=== PATIENT | male | born 1955 | race African-American/Black ===

== ENCOUNTER 2021-10-31 14:18 | Observation (INO) | payer BC ==
[2021-10-31] MEDS ORDERED: SODIUM CHLORIDE 0.9% 500 ML INFUS.BAG IV ONE (15:30)
[2021-10-31] MEDS ORDERED: ACETAMINOPHEN 1000 MG/100 ML VIAL IVPB ONE (15:30)
[2021-10-31] MEDS ORDERED: ACETAMINOPHEN INJECTION 100 ML IVPB ONE (15:38)
[2021-10-31 16:58] LABS: CHLORIDE 106 mmol/L (98-107); SODIUM 140 mmol/L (136-145)
[2021-10-31 17:00] LABS: ALBUMIN 3.3 g/dl (3.4-5.0); ANION GAP 8 MMOL/L (8-16); BLOOD UREA NITROGEN 15.4 mg/dL (7-18); CALCIUM 8.2 mg/dL (8.5-10.1); CO2 27 mmol/L (21-32); GLUCOSE,RANDOM 98 mg/dL (74-106)
[2021-10-31 17:03] LABS: CREATININE 1.3 mg/dL (0.55-1.3)
[2021-10-31 17:04] LABS: SGOT/AST 64 U/L (15-37); SGPT/ALT 64 U/L (13-61)
[2021-10-31 17:05] LABS: BILIRUBIN,TOTAL 0.4 mg/dL (0.2-1); TOT PROT 7.2 g/dl (6.4-8.2)
[2021-10-31 17:06] LABS: ALK PHOS 56 U/L (45-117)
[2021-10-31 17:20] LABS: BASO % 0.4 % (0-2.0); HEMATOCRIT 42.6 % (35.4-49); HEMOGLOBIN 13.7 GM/dL (11.7-16.9); LYMPH % 20.7 % (8-40); MCH 23.8 pg (25.7-33.7); MCHC 32.3 g/dl (32.0-35.9); MEAN CELL VOLUME 73.9 fl (80-96); MEAN PLT VOLUME 11.1 fl (7.5-11.1); MONO % 15.6 % (3.8-10.2); NEUT % 63.3 % (42.8-82.8); PLATELET COUNT 94 10^3/uL (134-434); RBC 5.76 M/mm3 (4.00-5.60); RDW 14.2 % (11.9-15.9); WHITE BLOOD COUNT 4.6 K/mm3 (4.0-10.0)
[2021-10-31] MEDS ORDERED: POTASSIUM CHLORIDE ORAL LIQUID 20 MEQ/15 ML PO ONE (19:34)
[2021-10-31 21:05] LABS: MAGNESIUM 2.1 mg/dL (1.8-2.4)
[2021-10-31] MEDS: ENOXAPARIN NA (PORCINE) 40 MG/0.4 ML DISP.SYRIN SQ SCH (22:06)
[2021-10-31 23:35] VITALS: BMI 27.7
[2021-11-01 07:33] LABS: BASO % 0.3 % (0-2.0); EOS % 0.1 % (0-4.5); HEMATOCRIT 39.6 % (35.4-49); HEMOGLOBIN 12.7 GM/dL (11.7-16.9); LYMPH % 38.3 % (8-40); MCH 23.3 pg (25.7-33.7); MCHC 32.1 g/dl (32.0-35.9); MEAN CELL VOLUME 72.7 fl (80-96); MEAN PLT VOLUME 10.5 fl (7.5-11.1); MONO % 17.3 % (3.8-10.2); PLATELET COUNT 83 10^3/uL (134-434); RBC 5.45 M/mm3 (4.00-5.60); RDW 14.7 % (11.9-15.9); WHITE BLOOD COUNT 2.5 K/mm3 (4.0-10.0)
[2021-11-01 07:44] LABS: INR 1.31 (0.83-1.09); PROTHROMBIN TIME (PATIENT) 14.7 SEC (9.7-13.0)
[2021-11-01 07:46] LABS: ACTIVATED PTT 31.8 SECONDS (25.2-36.5)
[2021-11-01 07:57] LABS: CALCIUM 7.9 mg/dL (8.5-10.1)
[2021-11-01 07:58] LABS: MAGNESIUM 2.1 mg/dL (1.8-2.4)
[2021-11-01 08:00] LABS: PHOSPHOROUS 2.6 mg/dL (2.5-4.9)
[2021-11-01 08:01] LABS: BLOOD UREA NITROGEN 13.2 mg/dL (7-18)
[2021-11-01 08:47] LABS: PH,URINE 5.5 (5.0-8.0); URINE APPEARANCE CLEAR; URINE BILIRUBIN NEGATIVE (NEGATIVE); URINE COLOR YELLOW; URINE GLUCOSE (UA) NEGATIVE (NEGATIVE); URINE KETONE NEGATIVE (NEGATIVE); URINE LEUK ESTERASE NEGATIVE (NEGATIVE); URINE NITRITE NEGATIVE (NEGATIVE); URINE PROTEIN TRACE (NEGATIVE)
[2021-11-01] MEDS: ENOXAPARIN NA (PORCINE) 40 MG/0.4 ML DISP.SYRIN SQ SCH (09:53)
[2021-11-01] MEDS ORDERED: ASCORBIC ACID 250 MG TABLET (FP) PO SCH (10:45)
[2021-11-01] MEDS ORDERED: CHOLECALCIFEROL (VIT D3) 1,000 UNIT (25 MCG) TABLET PO SCH (10:45)
[2021-11-01] MEDS ORDERED: ZINC SULFATE 220 MG CAPSULE (FP) PO SCH (10:45)
[2021-11-01] MEDS: ACETAMINOPHEN 325 MG TABLET (FP) PO PRN ×2 (11:15→17:36)
[2021-11-01] MEDS ORDERED: PT OWN MED DRAWER 7, Y5N ONE (13:59)
[2021-11-01 14:29] VITALS: BP 102/52; PULSE 56; TEMP 100
== END 2021-11-01 18:43 | disposition home or self-care (01) ==
LOC: JER 14:18 → JERBED 15:28 → INTOOBSV 15:28 → J4S 20:40
PROVIDERS: ADMIT Internal Medicine
PROC: 3E033NZ Introduction of Analgesics, Hypnotics, Sedatives into Peripheral Vein, Percutaneous Approach (ICD-10-PCS; principal; 2021-10-31)
PROC: 3E023GC Introduction of Other Therapeutic Substance into Muscle, Percutaneous Approach (ICD-10-PCS; 2021-10-31)
PROC: 3E0337Z Introduction of Electrolytic and Water Balance Substance into Peripheral Vein, Percutaneous Approach (ICD-10-PCS; 2021-10-31)
DX: U07.1 COVID-19 (principal); R55 Syncope and collapse; I10 Essential (primary) hypertension; R79.89 Other specified abnormal findings of blood chemistry; R05.9 Cough, unspecified
CPT/HCPCS: 36415; 70450-TC; 71045-TC-FY; 80048; 80053; 80061; 81003; 82533; 82550; 82553; 82728; 82962; 83036; 83615; 83735; 83930; 84100; 84439; 84443; 84484; 85025; 85379; 85610; 85730; 86140; 87040; 87086; 87804; 93005; 93010; 93880-TC; 94010; 99285-25; C9803; G0378; J0131; U0003; U0005

== ENCOUNTER 2022-08-21 20:27 | Emergency (ER) | payer BC ==
[2022-08-21 20:45] VITALS: BP 159/76; PULSE 52; RESP 19; TEMP 98.2; BMI 27.4
[2022-08-21 21:39] LABS: BASO % 0.6 % (0-2.0); EOS % 3.2 % (0-4.5); HEMATOCRIT 41.5 % (35.4-49); HEMOGLOBIN 13.2 GM/dL (11.7-16.9); LYMPH % 53.1 % (8-40); MCH 23.5 pg (25.7-33.7); MCHC 31.8 g/dl (32.0-35.9); MEAN CELL VOLUME 73.8 fl (80-96); MEAN PLT VOLUME 9.6 fl (7.5-11.1); MONO % 13.5 % (3.8-10.2); NEUT % 29.6 % (42.8-82.8); PLATELET COUNT 131 10^3/uL (134-434); RBC 5.62 M/mm3 (4.00-5.60); RDW 14.7 % (11.9-15.9); WHITE BLOOD COUNT 5.1 K/mm3 (4.0-10.0)
[2022-08-21 21:48] LABS: INR 1.11 (0.83-1.09); PROTHROMBIN TIME (PATIENT) 12.8 SEC (9.7-13.0)
[2022-08-21 21:50] LABS: ACTIVATED PTT 32.8 SECONDS (25.2-36.5)
[2022-08-21 22:06] LABS: ALBUMIN 3.6 g/dl (3.4-5.0); BLOOD UREA NITROGEN 13.8 mg/dL (7-18)
[2022-08-21 22:06] LABS: EPI CELLS 1 /uL (0-25.1); HYALINE CASTS 0 /uL (0-3.1); PH,URINE 8.5 (5.0-8.0); URINE APPEARANCE TURBID; URINE BACTERIA 5 /uL (0-1359); URINE BILIRUBIN NEGATIVE (NEGATIVE); URINE COLOR YELLOW; URINE GLUCOSE (UA) NEGATIVE (NEGATIVE); URINE KETONE TRACE (NEGATIVE); URINE LEUK ESTERASE NEGATIVE (NEGATIVE); URINE NITRITE NEGATIVE (NEGATIVE); URINE PROTEIN TRACE (NEGATIVE); URINE RBC 324 /uL (0-23.9); URINE WBC 2 /uL (0-25.8)
[2022-08-21 22:09] LABS: CREATININE 1.1 mg/dL (0.55-1.3)
[2022-08-21 22:11] LABS: TOT PROT 7.2 g/dl (6.4-8.2)
[2022-08-21 22:22] LABS: BILIRUBIN,TOTAL 0.3 mg/dL (0.2-1)
== END 2022-08-21 22:41 | disposition home or self-care (01) ==
LOC: JER 20:27
DX: R31.0 Gross hematuria (principal)
CPT/HCPCS: 36415; 80053; 81003; 85025; 85610; 85730; 87086; 99283-25

== ENCOUNTER 2022-10-14 19:34 | Emergency (ER) | payer BC ==
[2022-10-14 19:40] VITALS: BP 170/80; PULSE 54; RESP 18; TEMP 98.1; BMI 26.6
[2022-10-14] MEDS ORDERED: ACETAMINOPHEN 500 MG TABLET (FP) PO ONE (20:41)
[2022-10-14] MEDS ORDERED: IBUPROFEN 600 MG TABLET (FP) PO ONE ×2 (20:41→20:46)
[2022-10-14] MEDS ORDERED: ACETAMINOPHEN 500 MG TABLET (FP) ONE (20:46)
== END 2022-10-14 20:50 | disposition home or self-care (01) ==
LOC: JERFT 19:34
DX: M25.562 Pain in left knee (principal)
CPT/HCPCS: 73562-TC-LT-FY; 99283-25